=== PATIENT | female | born 2000 | race Caucasian/White ===

== ENCOUNTER → 2021-02-28 | Outpatient (CLI) | payer BC, SELFPAY ==
[2021-02-28 08:41] VITALS: BMI 32.0
[2021-03-02 03:07] LABS: Chlamydia By Nucleic Acid AMP Negative (Negative)
[2021-03-02 07:51] LABS: Gonococcus By Nucleic Acid AMP Negative (Negative)
== END | disposition home or self-care (01) ==
PROVIDERS: Referring Provider Nurse Practitioner Women's Health; Visit Provider Nurse Practitioner Women's Health
DX: Z11.3 Encounter for screening for infections with a predominantly sexual mode of transmission (principal)
CPT/HCPCS: 87491; 87591

== ENCOUNTER 2022-10-05 14:13 | Outpatient (CLI) | payer BC, SELFPAY ==
[2022-10-05 18:23] LABS: ALB/GLOB Ratio 1.4 RATIO (0.9-2.4); AST(SGOT) 18 U/L (15-37); Alanine Aminotransfer ALT/SGPT 23 U/L (13-56); Albumin, Serum 4.1 g/dL (3.2-5.0); Alkaline Phosphatase 69 U/L (45-117); Anion Gap 10 (5-15); BUN 11 mg/dL (7-18); BUN/Creat Ratio 13.6 RATIO (10-20); Calcium,Total 8.9 mg/dL (8.5-10.1); Chloride 103 mmol/L (98-107); Creatinine, Serum 0.81 mg/dL (0.55-1.02); EST Glomerular Filtration Rate 93 mL/min (>60); Est Glom Filt Rate - Afr Amer 112 mL/min (>60); Ferritin 27 ng/mL (8-252); Glucose 90 mg/dL (74-106); Magnesium 1.7 mg/dL (1.6-2.6); Potassium 3.5 mmol/L (3.5-5.1); Protein, Total 7.1 g/dL (6.4-8.2); Sodium Level 141 mmol/L (136-145)
[2022-10-05 18:27] LABS: Vitamin B12 546 pg/mL (211-911); Vitamin D,25 Hydroxy 21.9 ng/mL
== END 2022-10-05 23:59 | disposition home or self-care (01) ==
PROVIDERS: PCP Family Medicine; Referring Provider Family Medicine; Visit Provider Family Medicine
DX: R53.83 Other fatigue (principal)
CPT/HCPCS: 36415; 80053; 82306; 82607; 82728; 83735

== ENCOUNTER → 2023-10-04 | Outpatient (CLI) | payer BC, SELFPAY ==
--- OUTSIDE RECORDS SUMMARY | 2023-10-04 09:06 | XMS RPT_ITS | CCD ---
Author Name Unknown Address [address] [place] [address] [place] [id number] Organization [facility] Care Team Providers Care Automobile Parts Assembler Name Role Phone Edward Ryan Unavailable Unavailable Edward Ryan Unavailable Unavailable Ivelisse Kohli Primary Care Provider CHRIS GARCIA Attending Unavailable IVELISSE KOHLI Primary Care Unavailable CHRIS GARCIA Attending Unavailable IVELISSE KOHLI Primary Care Unavailable CHRIS GARCIA Attending Unavailable IVELISSE KOHLI Primary Care Unavailable CHRIS GARCIA Attending Unavailable IVELISSE KOHLI Primary Care Unavailable Ivelisse Kohli Primary Care Provider IVELISSE KOHLI Referring Unavailable IVELISSE KOHLI Primary Care Unavailable Ivelisse Kohli Primary Care Provider Ivelisse Kohli MD Primary Care Provider [phone] Unavailable Primary Care Provider Unavailabl e DERIK FALCON Attending Unavailable DERIK FALCON Referring Unavailable DERIK FALCON Attending Unavailable Allergies Allergy Classification Reported Allergen(s) Allergy Type Date of Onset Reaction(s) Facility (12 sources) Amoxicillin; Translations: [Unknown] Drug Allergy 05-21-2019 [facility] Medications Current Medications Medication Drug Class(es) Dates Sig (Normalized) Sig (Original) adapalene 0.003 mg/mg / benzoyl peroxide 0.025 mg/mg topical gel (4 sources) Retinoid Start: 05-21-2019 adapalene-benzoyl peroxide (Epiduo Forte) 0.3-2.5 % GlwP Apply 1 application topically daily . 45 g 1 05/21/2019 Active clindamycin 300 mg oral capsule (1 source) Lincosamide Antibacterial Start: 01-05-2020 End: 01-12-2020 take 1 capsule by mouth three times daily clindamycin 300 MG capsule Take 1 capsule by mouth 3 times daily for 7 days. 21 capsule 0 01/05/2020 01/12/2020 Active drospirenone 3 mg / ethinyl estradiol 0.03 mg oral tablet (8 sources) Progestin, Estrogen Start: 05-11-2019 End: 03-02-2020 take 1 tablet by mouth once daily drospirenone-ethiny l estradiol 3-0.03 MG tablet Indications: Encounter for surveillance of contraceptive pills Take 1 tablet by mouth daily. 3 Package 4 03/02/2020 Active Completed/Discontinued Medications Medication Drug Class(es) Dates Sig (Normalized) Sig (Original) azithromycin 250 mg oral tablet (3 sources) Macrolide Antimicrobial Start: 01-05-2020 End: 01-05-2020 azithromycin (ZITHROMAX) tablet 500 mg Problems Active Problems Problem Classification Problem Date Documented Date Episodic/Chronic Immunizations and screening for infectious disease (3 sources) Contact with or exposure to other viral diseases; Translations: [Exposure to COVID-19 virus] Episodic Malaise and fatigue (3 sources) Fatigue; Translations: [Other fatigue] Onset: 07-05-2022 Episodic Other nervous system disorders (4 sources) Skin sensation disturbance; Translations: [Other disturbances of skin sensation] Episodic Other nutritional; endocrine; and metabolic disorders (1 source) Obese class I; Translations: [Obesity, unspecified] Onset: 03-02-2020 03-02-2020 Chronic Other nutritional; endocrine; and metabolic disorders (2 sources) Unintentional weight gain; Translations: [Abnormal weight gain] Episodic Other nutritional; endocrine; and metabolic disorders (1 source) Abnormal weight gain; Translations: [Unintended weight gain] Onset: 07-05-2022 Episodic Other nutritional; endocrine; and metabolic disorders (1 source) Obese class I; Translations: [Obesity (BMI 30.0-34.9)] Onset: 03-02-2020 03-02-2020 Other screening for suspected conditions (not mental disorders or infectious disease) (1 source) Cancer cervix screening status; Translations: [Encounter for screening for malignant neoplasm of cervix] Episodic Other skin disorders (4 sources) Acne; Translations: [Other acne] Episodic Other skin disorders (1 source) Asteatosis cutis; Translations: [Xerosis cutis] Episodic Other skin disorders (1 source) Other acne; Translations: [Other acne] Onset: 07-05-2022 Episodic Residual codes; unclassified (3 sources) Reduced libido; Translations: [Decreased libido] Episodic Residual codes; unclassified (1 source) Decreased libido; Translations: [Low libido] Onset: 07-05-2022 Episodic Unclassified (2 sources) Patient encounter status; Translations: [Well woman exam with routine gynecological exam] Unclassified (1 source) Cancer cervix screening status; Translations: [Screening for cervical cancer] Viral infection (5 sources) Verruca vulgaris; Translations: [Disease caused by 2019-nCoV] Episodic Past or Other Problems Problem Classification Problem Date Documented Da te Episodic/Chronic Contraceptive and procreative management (1 source) Oral contraception; Translations: [Encounter for surveillance of contraceptive pills] Episodic Other upper respiratory infections (1 source) Streptococcal sore throat; Translations: [Strep pharyngitis] Episodic Results Test Name Value Interpretation Reference Range Facil ity Vital Signs Date Time Vital Sign Value Performing Clinician Facility 08-03-2022 08:50-0500 Body weight 88.72 kg Derik Falcon MD Work Phone: [facility] 08-03-2022 08:50-0500 Diastolic blood pressure 68 mm[Hg] Derik Falcon MD Work Phone: [facility] 08-03-2022 08:50-0500 Systolic blood pressure 100 mm[Hg] Derik Falcon MD Work Phone: [facility] 06-29-2022 09:32-0500 Body height 160.7 cm Derik Falcon MD Work Phone: [facility] 06-29-2022 09:32-0500 Body weight 87.18 kg Derik Falcon MD Work Phone: [facility] 06-29-2022 09:32-0500 Diastolic blood pressure 70 mm[Hg] Derik Falcon MD Work Phone: [facility] 06-29-2022 09:32-0500 Systolic blood pressure 106 mm[Hg] Derik Falcon MD Work Phone: [facility] 05-26-2021 10:41-0400 Body height 160 cm Yvonne DALE Work Phone: [facility] 05-26-2021 10:41-0400 Body mass index (BMI) [Ratio] 32.88 kg/m2 Yvonne Gibson APRN-ROTATING EQUIPMENT SPECIALIST Work Phone: [facility] 05-26-2021 10:41-0400 Body temperature 99.19 [degF] Yvonne Gibson WEBSPHERE ARCHITECT-ROTATING EQUIPMENT SPECIALIST Work Phone: [facility] 05-26-2021 10:41-0400 Body weight 84.19 kg Yvonne Gibson WEBSPHERE ARCHITECT-ROTATING EQUIPMENT SPECIALIST Work Phone: [facility] 05-26-2021 10:41-0400 Diastolic blood pressure 80 mm[Hg] Yvonne Gibson WEBSPHERE ARCHITECT-ROTATING EQUIPMENT SPECIALIST Work Phone: [facility] 05-26-2021 10:41-0400 Heart rate 90 /min Yvonne Gibson APRN-ROTATING EQUIPMENT SPECIALIST Work Phone: [facility] 05-26-2021 10:41-0400 Respiratory rate 18 /min Yvonne Gibson APRN-ROTATING EQUIPMENT SPECIALIST Work Phone: [facility] 05-26-2021 10:41-0400 SaO2% (BldA) [Mass fraction] 97 % Yvonne Gibson APRN-ROTATING EQUIPMENT SPECIALIST Work Phone: [facility] 05-26-2021 10:41-0400 Systolic blood pressure 126 mm[Hg] Yvonne Gibson WEBSPHERE ARCHITECT-ROTATING EQUIPMENT SPECIALIST Work Phone: [facility] 03-02-2020 10:30-0400 BMI (Body Mass Index) 30 kg/m2 [facility] 03-02-2020 10:30-0400 Body weight 74.39 kg [facility] 03-02-2020 10:30-0400 BP Diastolic 80 mm[Hg] [facility] 03-02-2020 10:30-0400 BP Systolic 126 mm[Hg] [facility] 03-02-2020 10:30-0400 Height 157.5 cm [facility] 03-02-2020 10:30-0400 Pulse (Heart Rate) 80 /min [facility] 03-02-2020 10:30-0400 Respiratory Rate 16 /min [facility] 01-05-2020 19:55-0400 BMI (Body Mass Index) 29.63 kg/m2 [facility] 01-05-2020 19:55-0400 Body weight 73.48 kg [facility] 01-05-2020 19:55-0400 Height 157.5 cm [facility] 01-05-2020 19:54-0400 Body Temperature 100.29 [degF] [facility] 01-05-2020 19:54-0400 BP Diastolic 89 mm[Hg] [facility] 01-05-2020 19:54-0400 BP Systolic 136 mm[Hg] [facility] 01-05-2020 19:54-0400 Pulse (Heart Rate) 111 /min [facility] 01-05-2020 19:54-0400 Pulse Oximetry 97 % [facility] 01-05-2020 19:54-0400 Respiratory Rate 18 /min [facility] Encounters Encounter Date Encounter Type Care Provider Facility Start: 08-03-2022 End: 08-03-2022 ambulatory DERIK FALCON Facility:[facility] Start: 08-03-2022 End: 08-03-2022 Patient encounter procedure Derik Falcon MD Work Phone: OB/Gynecology Procedures Date Procedure Procedure Detail Performing Clinician Start: 05-26-2021 SARS-COV-2 RAPID Olga Gibson WEBSPHERE ARCHITECT-ROTATING EQUIPMENT SPECIALIST Work Phone: Start: 04-21-2020 COVID-19 IVELISSE Wynne Start: 04-21-2020 COVID-19 Ivelisse Krishnan own Work Phone: Start: 03-02-[address]/NG/TRI CH, RFX TO HPV MRNA ASCUS [facility] Work Phone: Start: 01-05-2020 Iaadiadoo streptococ cus group a Betty Tolentino Work Phone: Plan of Treatment Date Care Activity Detail Author Start: 06-29-2025 PAP TESTING PAP TESTING [facility] Start: 06-29-2023 CHLAMYDIA SCREENING (18-24) CHLAMYDIA SCREENING (18-24) [facility] Start: 06-29-2023 GC (GONORRHEA) SCREENING (18-24) GC (GONORRHEA) SCREENING (18-24) [facility] Start: 07-22-2022 DEPRESSION ASSESSMENT DEPRESSION ASS ESSMENT [facility] Start: 06-29-2022 End: 08-29-2022 17-Hydroxyprogesterone [Mass/volume] in Serum or Plasma HYDROXYPROGESTERO-17 Lab Routine Low libido Other acne Unintended weight gain Expected: 06/29/2022, Expires: 08/29/2022 [facility] Work Phone: Immunizations Immunization Date Immunization Notes Care Provider Maeve carrero 04-16-2019 influenza virus vaccine, unspecified formulation Yvonne Gibson WEBSPHERE ARCHITECT-ROTATING EQUIPMENT SPECIALIST Work Phone: [facility] Payers Date Payer Category Payer Unknown [employer] BLUE CARD PPO OOS [id number] 2021-Present [phone] [facility] [id number] [place] [address] PPO [id number] 2019 Unknown [id number] 2017 Unknown ANTHEM BCBS OUT OF STATE [facility] xxxxxxxxxxxxxxx 2017-Present xxxxxxxxxxxxxxx [id number] 2014 Blue [employer] Blue Shield [id number] 1999 Unknown [id number] 03 1999 Unknown [id number] 03 1999 Unknown [id number] 03 1999 Unknown [id number] 03 1999 Unknown [id number] Social History Date Type Detail Facility Start: 05-21-2019 End: 06-29-2022 Tobacco smoking status NHIS Never smoker [facility] Start: 1999 Sex Assigned At Not on file [facility] Start: 03-02-2020 End: 06-29-2022 Tobacco use and exposure Never used [employer] Start: 03-02-2020 End: 05-26-2021 Alcohol intake Ex-drinker (finding) [facility] Exposure to SARS-CoV -2 (event) Not sure [employer] Start: 06-29-2022 End: 08-03-2022 Alcohol intake Current drinker of alcohol (finding) [facility] Start: 06-29-2022 Alcohol Comment occasional [facility] Start: 1999 Sex Assigned At Female [facility] Clinical Notes 05-26-2021 to 08-03-2022 Derik Falcon MD - 08/03/2022 8:47 AM ESTTelephone Encounter - Omayra Sagastume RN - 07/10/2022 8:49 AM ESTTelephone Encounter - Omayra Sagastume RN - 07/09/2022 4:58 PM ESTPatient Instructions Note Date & Type Note Facility 08-03-2022 Note HNO ID: [id number] Author: Derik Falcon MD Service: ? Author Type: Physician Type: Progress Notes Filed: 08/03/2022 10:32 AM Note Text: Eloina Serrano is a 22 year old female who presents for follow up after blood work. HPI: Here for follow up. Still having low motivation, fatigue, weight gain. Has no energy to workout or leave house at times. Does get enjoyment out of things once she does them. She denies a h/o anxiety or depression. Getting restful sleep at night but then still feels tired. No frequent crying spells. 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 OB History T0 L0 SAB0 IAB0 Ectopic0 Multiple0 Live Births0 Merchandising Execution Associate History LMP: 07/03/2022, Having periods Age at Menarche: Age at First : Age at Menopause: Merchandising Execution Associate History Comments: Sexual Activity: Yes; Male Contraception: Condom No past medical history on file. PAST SURGICAL HISTORY Procedure Laterality Date NONE FAMILY HISTORY Problem Relation Age of Onset other (ibs) Mother Hypertension Father No Known Problems Sister No Known Problems Sister No Known Problems Maternal Grandmother No Known Problems Maternal Grandfather No Known Problems Paternal Grandmother No Known Problems Paternal Grandfather Social History Tobacco Use Smoking status: Never Smokeless tobacco: Never Vaping Use Vaping Use: Never used Substance Use Topics Alcohol use: Yes Comment: occasional Drug use: Never No current outpatient medications on file. No current facility-administered medications for this visit. Allergies As of Date: 08/03/2022 Allergen Noted Reaction AMOXICILLIN 06/29/2022 Hives Fully Assessed 08/03/2022 REVIEW OF SYSTEMS Expanded ROS: N/A Allergies and current medication updated:Yes EXAM: BP 100/68 Wt 195 lb 9.6 oz (88.7kg) LMP 07/03/2022 GENERAL: pleasant, female in no apparent distress HEENT: Normocephalic, atraumatic, mucus membranes moist, and no lesions NECK: full range of motion DERMATOLOGY: Normal and without lesions CHEST: Normal inspiratory effort NEURO: exam grossly non-focal EXTREMITIES: normal ASSESSMENT AND PLAN: Encounter Diagnosis ICD-10-CM 1. Other fatigue R53.83 2. Low libido R68.82 3. Unintended weight gain R63.5 Reviewed normal blood work. Recommend establishing with a PCP for another opinion regarding symptoms. Discussed possible mood disorder? Reviewed option for trying SSRI vs establishing with Reyna Harmon. Recommend routine exercise, balanced diet, and getting outside every day. RTO annual exams and PRN. Derik Falcon, DO I spent 20 minutes in the visit, with more than 50% of the total [id number]-ik-[id number] time of the visit in counseling / coordination of care. [facility] 08-03-2022 History of Presen t illness Narrative Eloina Serrano is a 22 year old female who presents for follow up after blood work. HPI: Here for follow up. Still having low motivation, fatigue, weight gain. Has no energy to workout or leave house at times. Does get enjoyment out of things once she does them. She denies a h/o anxiety or depression. Getting restful sleep at night but then still feels tired. No frequent crying spells. 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 OB History T0 L0 SAB0 IAB0 Ectopic0 Multiple0 Live Births0 Merchandising Execution Associate History LMP: 07/03/2022, Having periods Age at Menarche: Age at First : Age at Menopause: Merchandising Execution Associate History Comments: Sexual Activity: Yes; Male Contraception: Condom No past medical history on file. PAST SURGICAL HISTORY Procedure Laterality Date NONE FAMILY HISTORY Problem Relation Age of Onset other (ibs) Mother Hypertension Father No Known Problems Sister No Known Problems Sister No Known Problems Maternal Grandmother No Known Problems Maternal Grandfather No Known Problems Paternal Grandmother No Known Problems Paternal Grandfather Social History Tobacco Use Smoking status: Never Smokeless tobacco: Never Vaping Use Vaping Use: Never used Substance Use Topics Alcohol use: Yes Comment: occasional Drug use: Never No current outpatient medications on file. No current facility-administered medications for this visit. Allergies As of Date: 08/03/2022 Allergen Noted Reaction AMOXICILLIN 06/29/2022 Hives Fully Assessed 08/03/2022 REVIEW OF SYSTEMS Expanded ROS: N/A Allergies and current medication updated:Yes EXAM: BP 100/68 Wt 195 lb 9.6 oz (88.7kg) LMP 07/03/2022 GENERAL: pleasant, female in no apparent distress HEENT: Normocephalic, atraumatic, mucus membranes moist, and no lesions NECK: full range of motion DERMATOLOGY: Normal and without lesions CHEST: Normal inspiratory effort NEURO: exam grossly non-focal EXTREMITIES: normal ASSESSMENT AND PLAN: Encounter Diagnosis ICD-10-CM 1. Other fatigue R53.83 2. Low libido R68.82 3. Unintended weight gain R63.5 Reviewed normal blood work. Recommend establishing with a PCP for another opinion regarding symptoms. Discussed possible mood disorder? Reviewed option for trying SSRI vs establishing with Reyna Harmon. Recommend routine exercise, balanced diet, and getting outside every day. RTO annual exams and PRN. Derik Falcon DO I spent 20 minutes in the visit, with more than 50% of the total [id number] time of the visit in counseling / coordination of care. documented in this encounter [facility] 07-10-2022 Miscellaneous Notes Formattin g of this note might be different from the original. Patient viewed [email or web address] message. Omayra Sagastume RN Left message for patient to call office for results or check [employer] message. Omayra Sagastume RN ----- Message from Derik Falcon MD sent at 07/09/2022 8:00 AM EST ----- Message sent to pt call if not viewed Eloina- Your labs are unremarkable. Since your menstrual cycles are normal, but you are experiencing a few bothersome symptoms, I would recommend establishing with a primary care provider. -Dr. Falcon documented in this encounter [facility] 06-29-2022 Note HNO ID: [id number] Author: Derik Falcon MD Service: ? Author Type: Physician Type: Progress Notes Filed: 06/29/2022 12:38 PM Note Text: Fence Builder offered: Patient declines. Eloina is a 22 year old who presents for an annual gynecologic exam with complaints, low libido . Started ocp in the past for dysmenorrhea. Was on ocp for 2 years and has been off for 1 year. Wondering if ocp could contribute to low libido. Has noticed fatigue, cold intolerance, low lbido over 1 year. Has also had worsened acne and weight gain despite exercise and changing diet. Wondering about hormone levels. Menses: cycles every 28 days and 3 days of flow. Dysmenorrhea has improved Contraception: condoms Last Pap: No record HPV: N/A History of abnormal pap: No Last mammogram: never Sexually active: Yes Male partner getting next fall! Patient concerns for STD exposure: No. OB History No obstetric history on file. Merchandising Execution Associate History LMP: 06/02/2022, Having periods Age at Menarche: Age at First : Age at Menopause: Merchandising Execution Associate History Comments: Sexual Activity: Yes; Male Contraception: Condom History reviewed. No pertinent past medical history. PAST SURGICAL HISTORY Procedure Laterality Date NONE FAMILY HISTORY Problem Relation Age of Onset other (ibs) Mother Hypertension Father No Known Problems Sister No Known Problems Sister No Known Problems Maternal Grandmother No Known Problems Maternal Grandfather No Known Problems Paternal Grandmother No Known Problems Paternal Grandfather SOCIAL HISTORY Social History Tobacco Use Smoking status: Never Smokeless tobacco: Never Vaping Use Vaping Use: Never used Substance Use Topics Alcohol use: Yes Comment: occasional Drug use: Never REVIEW OF SYSTEMS Abdomen: No abdominal pain, nausea, vomiting, diarrhea, or constipation. No bloating, early satiety, indigestion, or increased flatulence. Bladder: No dysuria, gross hematuria, urinary frequency, urinary urgency, or incontinence. Breast: No breast lumps, nipple d/c, overlying skin changes, redness or skin retraction. Allergies and current medication updated:Yes EXAM: BP 106/70 Ht 5' 3.25 (1.61m) Wt 192 lb 3.2 oz (87.2kg) LMP 06/02/2022 BMI 33.76 kg/(m2). GENERAL: pleasant, female in no apparent distress HEENT: Normocephalic, atraumatic, mucus membranes moist, and no lesions NECK: Supple, full range of motion, no adenopathy, and thyroid normal DERMATOLOGY: Normal, without lesions, non-icteric, and non-hirsute BREAST: soft, non-tender, symmetric, no dominant mass, normal nipple-areolar complex, no lymphadenopathy, and no nipple discharge CHEST: Normal inspiratory effort ABDOMEN: soft, non-tender, and no masses PELVIC: external genitalia normal, normal Bartholin's glands, urethra, Ewen's glands, no vulvar lesions, no cervical lesions, good vaginal support, physiologic discharge present, normal appearing perineal body and perianal region BIMANUAL: uterus normal size, shape and consistency, no adnexal masses, and non-tender RECTOVAGINAL: deferred. NEURO: exam grossly non-focal EXTREMITIES: normal ASSESSMENT/PLAN: 1) Health maintenance: Pap done with reflex HPV. Nutrition, exercise and routine health maintenance exams reviewed. Low libido: Discussed date nights, foreplay, erotic videos/pictures, etc. Information given on meet mc. Discussed option for seeing sex therapist and/or [facility]. Referral placed to sexual health. Discussed as she has been off ocp for 1 year now, unlikely to be contributing at this time. Fatigue, weight gain, acne, cold intolerance: Discussed limitations with checking PCOS panel especially given regular menstrual cycles. 2) Contraception: condoms. Contraceptive options reviewed and information provided. 3) STD screening: Accepted STD check for Gonorrhea and Chlamydia. 4) Follow up one year or sooner as needed Derik Falcon DO [facility] 06-29-2022 Instructions Derik Falcon MD - 06/29/2022 10:13 AM EST Get blood work on cycle day 3 of your period documented in this encounter [facility] 06-29-2022 History of Presen t illness Narrative Fence Builder offered: Patient declines. Eloina is a 22 year old who presents for an annual gynecologic exam with complaints, low libido . Started ocp in the past for dysmenorrhea. Was on ocp for 2 years and has been off for 1 year. Wondering if ocp could contribute to low libido. Has noticed fatigue, cold intolerance, low lbido over 1 year. Has also had worsened acne and weight gain despite exercise and changing diet. Wondering about hormone levels. Menses: cycles every 28 days and 3 days of flow. Dysmenorrhea has improved Contraception: condoms Last Pap: No record HPV: N/A History of abnormal pap: No Last mammogram: never Sexually active: Yes Male partner getting next fall! Patient concerns for STD exposure: No. OB History No obstetric history on file. Merchandising Execution Associate History LMP: 06/02/2022, Having periods Age at Menarche: Age at First : Age at Menopause: Merchandising Execution Associate History Comments: Sexual Activity: Yes; Male Contraception: Condom History reviewed. No pertinent past medical history. PAST SURGICAL HISTORY Procedure Laterality Date NONE FAMILY HISTORY Problem Relation Age of Onset other (ibs) Mother Hypertension Father No Known Problems Sister No Known Problems Sister No Known Problems Maternal Grandmother No Known Problems Maternal Grandfather No Known Problems Paternal Grandmother No Known Problems Paternal Grandfather SOCIAL HISTORY Social History Tobacco Use Smoking status: Never Smokeless tobacco: Never Vaping Use Vaping Use: Never used Substance Use Topics Alcohol use: Yes Comment: occasional Drug use: Never REVIEW OF SYSTEMS Abdomen: No abdominal pain, nausea, vomiting, diarrhea, or constipation. No bloating, early satiety, indigestion, or increased flatulence. Bladder: No dysuria, gross hematuria, urinary frequency, urinary urgency, or incontinence. Breast: No breast lumps, nipple d/c, overlying skin changes, redness or skin retraction. Allergies and current medication updated:Yes EXAM: BP 106/70 Ht 5' 3.25 (1.61m) Wt 192 lb 3.2 oz (87.2kg) LMP 06/02/2022 BMI 33.76 kg/(m^2). GENERAL: pleasant, female in no apparent distress HEENT: Normocephalic, atraumatic, mucus membranes moist, and no lesions NECK: Supple, full range of motion, no adenopathy, and thyroid normal DERMATOLOGY: Normal, without lesions, non-icteric, and non-hirsute BREAST: soft, non-tender, symmetric, no dominant mass, normal nipple-areolar complex, no lymphadenopathy, and no nipple discharge CHEST: Normal inspiratory effort ABDOMEN: soft, non-tender, and no masses PELVIC: external genitalia normal, normal Bartholin's glands, urethra, Ewen's glands, no vulvar lesions, no cervical lesions, good vaginal support, physiologic discharge present, normal appearing perineal body and perianal region BIMANUAL: uterus normal size, shape and consistency, no adnexal masses, and non-tender RECTOVAGINAL: deferred. NEURO: exam grossly non-focal EXTREMITIES: normal ASSESSMENT/PLAN: 1) Health maintenance: Pap done with reflex HPV. Nutrition, exercise and routine health maintenance exams reviewed. Low libido: Discussed date nights, foreplay, erotic videos/pictures, etc. Information given on meet mc. Discussed option for seeing sex therapist and/or [facility]. Referral placed to sexual health. Discussed as she has been off ocp for 1 year now, unlikely to be contributing at this time. Fatigue, weight gain, acne, cold intolerance: Discussed limitations with checking PCOS panel especially given regular menstrual cycles. 2) Contraception: condoms. Contraceptive options reviewed and information provided. 3) STD screening: Accepted STD check for Gonorrhea and Chlamydia. 4) Follow up one year or sooner as needed Derik Falcon DO documented in this encounter [facility] 05-26-2021 History of Presen t illness Narrative HPI Eloina Serrano female 2000 presents to the [facility] with Chief Complaint Patient presents with Cough runny nose,starting to loose taste, exposed saturday,symptoms started saturday Patient presents with concerns for COVID19. Her symptoms started on Saturday. She was exposed and her sister on Saturday. Patient complains of rhinorrhea, cough, change in taste. Denies fever, chills, NVD, headache,, chest pain, shortness of breath. No self treatments. History Allergies Allergen Reactions Amoxicillin Current Outpatient Medications Medication Sig drospirenone-ethinyl estradiol 3-0.03 MG tablet Take 1 tablet by mouth daily. (Patient not taking: Reported on 05/26/2021) tiZANidine 4 MG tablet TAKE 1 TABLET BY MOUTH AT BEDTIME NEEDED spasms (Patient not taking: Reported on 05/26/2021) Family History Problem Relation Age of Onset Migraines Mother Thyroid Disease Mother Hypertension Father Lipid Disorder Father Alcoholism Father Skin Cancer Sister Heart Failure Maternal Grandmother Myocardial Infarction Maternal Grandmother Migraines Maternal Grandmother Skin Cancer Maternal Grandfather Alcoholism Maternal Grandfather Kidney Disease Paternal Grandfather Past Medical History: Diagnosis Date Headache No past surgical history on file. Social History Socioeconomic History Marital status: Single Spouse name: Not on file Number of children: Not on file Years of education: Not on file Highest education level: Not on file Occupational History Not on file Tobacco Use Smoking status: Never Smoker Smokeless tobacco: Never Used Vaping Use Vaping Use: Never used Substance and Sexual Activity Alcohol use: Not Currently Drug use: Never Sexual activity: Yes Partners: Male control/protection: Condom Other Topics Concern Service Not Asked Blood Transfusions Not Asked Caffeine Concern Not Asked Occupational Exposure Not Asked Hobby Hazards Not Asked Sleep Concern Not Asked Stress Concern Not Asked Weight Concern Not Asked Special Diet Not Asked Back Care Not Asked Exercise Not Asked Bike Helmet Not Asked Seat Belt Not Asked Domestic Violence No Social History Narrative Not on file Social Determinants of Health Financial Resource Strain: Difficulty of Paying Living Expenses: Food Insecurity: Worried About Running Out of Food in the Last Year: Ran Out of Food in the Last Year: Transportation Needs: Lack of Transportation (Medical): Lack of Transportation (Non-Medical): Physical Activity: Days of Exercise per Week: Minutes of Exercise per Session: Stress: Feeling of Stress : Social Connections: Frequency of Communication with Friends and Family: Frequency of Social Gatherings with Friends and Family: Attends [employer] Services: Active Member of Clubs or Organizations: Attends Club or Organization Meetings: Marital Status: Intimate Partner Violence: Fear of Current or Ex-Partner: Emotionally Abused: Physically Abused: Sexually Abused: ROS Review of Systems 8 systems reviewed with patient, negative unless specifically mentioned in history of present illness PHYSICAL EXAM Visit Vitals BP 126/80 (BP Location: Left arm, BP Position: Sitting) Pulse 90 Temp 99.2 F (37.3 C) (Temporal) Resp 18 Ht 1.6 m (5' 3 ) Wt 84.2 kg (185 lb 9.6 oz) SpO2 97% BMI 32.88 kg/m Physical Exam Vitals and nursing note reviewed. Constitutional: General: She is not in acute distress. Appearance: Normal appearance. She is well-developed. She is not ill-appearing or diaphoretic. HENT: Head: Normocephalic. Cardiovascular: Rate and Rhythm: Regular rhythm. Tachycardia present. Heart sounds: Normal heart sounds. Pulmonary: Effort: Pulmonary effort is normal. No respiratory distress. Breath sounds: Normal breath sounds. Abdominal: General: There is no distension. Musculoskeletal: Cervical back: Neck supple. Skin: General: Skin is warm and dry. Capillary Refill: Capillary refill takes less than 2 seconds. Neurological: General: No focal deficit present. Mental Status: She is alert and oriented to person, place, and time. Psychiatric: Mood and Affect: Mood normal. Behavior: Behavior normal. RESULTS Recent Results (from the past 1 hour(s)) SARS-COV-2 RAPID Collection Time: 05/26/21 10:38 AM Specimen: Fluid/Swab Result Value Ref Range SARS COV 2 RNA, QL REAL TIME RT PCR DETECTED (A) NOT DETECTED NARRATIVE -1 This test was performed using isothermal LISA and has been approved as Emergency Use Authorization (EUA) for the qualitative detection [id number] nucleic acid. PERFORMED BY [facility] ASSESSMENT/PLAN 1. COVID-19 virus infection 2. Exposure to COVID-19 virus Orders Placed This Encounter SARS-COV-2 RAPID Rapid COVID19 positive. Patient will quarantine per CDC guidelines. Reviewed symptomatic OTC treatments. If symptoms worsen patient was advised to follow up in our office, primary care provider or the Emergency Dept. Benefits, Risks, Contraindications, and Complications of recommended treatments were explained. The patient understands and agrees to proceed with plan. SUYAPA Chavarria 05/26/2021 documented in this encounter [facility] 05-26-2021 Instructions SUYAPA Chavarria - 05/26/2021 10:35 AM EDT Images from the original note were not included. Learning About Coronavirus (COVID-19) What is coronavirus (COVID-19)? COVID-19 is a disease caused by a type of coronavirus. This illness was first found in June 2019. It has since spread worldwide. Coronaviruses are a large group of viruses. They cause the common cold. They also cause more serious illnesses like [place] respiratory syndrome (MERS) and severe acute respiratory syndrome (SARS). COVID-19 is caused by a novel coronavirus. That means it's a new type that has not been seen in people before. What are the symptoms? COVID-19 symptoms may include: Fever. Cough. Trouble breathing. Chills or repeated shaking with chills. Muscle and body aches. Headache. Sore throat. New loss of taste or smell. Vomiting. Diarrhea. In severe cases, COVID-19 can cause pneumonia and make it hard to breathe without help from a machine. It can cause . How is it diagnosed? COVID-19 is diagnosed with a viral test. This may also be called a PCR test or antigen test. It looks for evidence of the virus in your breathing passages or lungs (respiratory system). The test is most often done on a sample from the nose, throat, or lungs. It's sometimes done on a sample of saliva. One way a sample is collected is by putting a long swab into the back of your nose. How is it treated? Mild cases of COVID-19 can be treated at home. Serious cases need treatment in the hospital. Treatment may include medicines to reduce symptoms, plus breathing support such as oxygen therapy or a ventilator. Some people may be placed on their belly to help their oxygen levels. Treatments that may help people who have COVID-19 include: Antiviral medicines. These medicines treat viral infections. Remdesivir is an example. Immune-based therapy. These medicines help the immune system fight COVID-19. Examples include monoclonal antibodies. Blood thinners. These medicines help prevent blood clots. People with severe illness are at risk for blood clots. How can you protect yourself and others? The best way to protect yourself from getting sick is to: Get vaccinated. Avoid sick people. If you are not fully vaccinated: ? Wear a mask if you have to go to public areas. ? Avoid crowds and try to stay at least 6 feet away from other people. Cover your mouth with a tissue when you cough or sneeze. Wash your hands often, especially after you cough or sneeze. Use soap and water, and scrub for at least 20 seconds. If soap and water aren't available, use an alcohol-based hand dairy technologist. Avoid touching your mouth, nose, and eyes. To help avoid spreading the virus to others: Get vaccinated. Cover your mouth with a tissue when you cough or sneeze. Wash your hands often, especially after you cough or sneeze. Use soap and water, and scrub for at least 20 seconds. If soap and water aren't available, use an alcohol-based hand dairy technologist. If you have been exposed to the virus and are not fully vaccinated: ? Stay home. Don't go to school, work, or public areas. And don't use public transportation, ride-shares, or taxis unless you have no choice. ? Wear a mask if you have to go to public areas, like the pharmacy. If you're sick: ? Leave your home only if you need to get medical care. But call the doctor's office first so they know you're coming. And wear a mask. ? Wear a mask whenever you're around other people. ? Limit contact with pets and people in your home. If possible, stay in a separate bedroom and use a separate bathroom. ? Clean and disinfect your home every day. Use household chief unit forester and disinfectant wipes or sprays. Take special care to clean things that you touch with your hands. How can you self-isolate when you have COVID-19? If you have COVID-19, there are things you can do to help avoid spreading the virus to others. Limit contact with people in your home. If possible, stay in a separate bedroom and use a separate bathroom. Wear a mask when you are around other people. If you have to leave home, avoid crowds and try to stay at least 6 feet away from other people. Avoid contact with pets and other animals. Cover your mouth and nose with a tissue when you cough or sneeze. Then throw it in the trash right away. Wash your hands often, especially after you cough or sneeze. Use soap and water, and scrub for at least 20 seconds. If soap and water aren't available, use an alcohol-based hand dairy technologist. Don't share personal household items. These include bedding, towels, cups and glasses, and eating utensils. Wash laundry in the warmest water allowed for the fabric type, and dry it completely. It's okay to wash other people's laundry with yours. Clean and disinfect your home. Use household chief unit forester and disinfectant wipes or sprays. When should you call for help? Call 911 anytime you think you may need emergency care. For example, call if you have life-threatening symptoms, such as: You have severe trouble breathing. (You can't talk at all.) You have constant chest pain or pressure. You are severely dizzy or lightheaded. You are confused or can't think clearly. You have pale, vasquez, or blue-colored skin or lips. You pass out (lose consciousness) or are very hard to wake up. Call your doctor now or seek immediate medical care if: You have moderate trouble breathing. (You can't speak a full sentence.) You are coughing up blood (more than about 1 teaspoon). You have signs of low blood pressure. These include feeling lightheaded; being too weak to stand; and having cold, pale, clammy skin. Watch closely for changes in your health, and be sure to contact your doctor if: Your symptoms get worse. You are not getting better as expected. You have new or worse symptoms of anxiety, depression, nightmares, or flashbacks. Call before you go to the doctor's office. Follow their instructions. And wear a mask. Current as of: January 19, 2021 Content Version: 13.0 [employer]. Care instructions adapted under license by your healthcare professional. If you have questions about a medical condition or this instruction, always ask your healthcare professional. [employer] disclaims any warranty or liability for your use of this information. documented in this encounter [facility] Encounter for gynecological examination (general) (routine) without abnormal findings- Primary Screening for cervical cancer Screening for malignant neoplasm of the cervix Encounter for screening for human papillomavirus (HPV) Special screening examination for human papillomavirus (HPV) Screen for STD (sexually transmitted disease) Screening examination for venereal disease Low libido Decreased libido Other acne Unintended weight gain Abnormal weight gain Fatigue, unspecified type [facility] Other fatigue- Primary Low libido Decreased libido Unintended weight gain Abnormal weight gain documented in this encounter [facility] Summary Purpose Family History No Family History Records FoundNo Family History Records FoundNo Family History Records FoundNo Family History Records FoundNo Family History Records FoundNo Family History Records FoundNo Family History Records Found Advance Directives No Advanced Directives Records FoundDocuments on File Type Date Recorded Patient Concessionist Expl anation Advance Directives and Living Will History of Present Illness * Chris Garcia Jr., DO - 05/21/2019 11:16 AM EDT Eloina Serrano is a 19 y.o. female who presents for Chief Complaint Skin Lesion Dictation on: 05/21/2019 11:18 AM by: CHRIS GARCIA [[id number]] Past Medical History: Diagnosis Date Acne No past medical history pertinent negatives. Family History Cancer-related family history is not on file. Review of Systems Constitutional: Malaise: No Skin: Other new or changing growths on skin: No Physical Examination Physical Exam The following areas were within normal limits except as noted otherwise in this note: Exposed: Oriented x 3/ alert; development/nourishment; mood/affect; scalp/hair; face; eyes/eyelids;lips; neck; digits/nails. Pertinent positive PE findings can be found below Assessment and Plan Chris Garcia DO 05/21/2019 documented in this encounter* Chris Garcia Jr., DO - 06/29/2019 5:05 PM EST Eloina Serrano is a 19 y.o. female who presents for Chief Complaint Skin Lesion The patient is here today for the evaluation of a bump on her left middle finger that has raised. She had laser treatment to this by a previous doctor which helped at the beginning, but it did grow back within a couple days. She is here today for different options for treatment. She is also here for evaluation of her acne. She has been dealing with acne for the last year or two. She states she was put on control, Cassie, which helped slightly, but she is still getting breakouts. She is innursing school and is under a lot of stress recently. PHYSICAL EXAM She has a verrucal papule of her left middle finger and also involving her right leg. She also has an inflammatory papules of her forehead with open comedones of her forehead, nose, and chin. ASSESSMENT AND PLAN 1. Verruca vulgaris of the left middle finger. We have injected this verruca today with Marie antigen. 0.3 mL was injected in her lesion today. Patient tolerated the procedure well. We have also used cryosurgery to the area with cryo method x2 freeze-thaw cycles. We discussed home care instructions and side effects with the patient. We have given the patient a prescription for wart peel cream to apply to the affected area twice a day. We will see the patient back in 4 weeks' time. Xerosis - new problem. Etiology explained. Treatment options with emphasis on risk/benefits discussed. Recommend Cerave moistuizer and mild soap. samples and coupons given today. Pertinent PE: slight erythema with desqumating scale hands Past Medical History: Diagnosis Date Acne Past Medical History Pertinent Negatives: Diagnosis Date Noted Basal cell carcinoma 06/17/2019 Melanoma (HCC) 06/17/2019 Squamous cell skin cancer 06/17/2019 Family History Cancer-related family history is not on file. Review of Systems Constitutional: Malaise: No Skin: Other new or changing growths on skin: No Physical Examination Physical Exam The following areas were within normal limits except as noted otherwise in this note: Exposed: Oriented x 3/ alert; development/nourishment; mood/affect; scalp/hair; face; eyes/eyelids;lips; neck; digits/nails. Pertinent positive PE findings can be found below Assessment and Plan Chris Garcia DO 06/29/2019 documented in this encounter* Chris Garcia Jr., DO - 07/23/2019 9:03 AM EST Eloina Serrano is a 19 y.o. female who presents for Chief Complaint Skin Lesion Dictation on: 07/23/2019 9:03 AM by: CHRIS GARCIA [[id number]] Past Medical History: Diagnosis Date Acne Past Medical History Pertinent Negatives: Diagnosis Date Noted Basal cell carcinoma 06/17/2019 Melanoma (HCC) 06/17/2019 Squamous cell skin cancer 06/17/2019 Family History Cancer-related family history is not on file. Review of Systems Constitutional: Malaise: No Skin: Other new or changing growths on skin: No Physical Examination Physical Exam The following areas were within normal limits except as noted otherwise in this note: Exposed: Oriented x 3/ alert; development/nourishment; mood/affect; scalp/hair; face; eyes/eyelids;lips; neck; digits/nails. Pertinent positive PE findings can be found below Assessment and Plan Chris Garcia DO 07/23/2019 documented in this encounter* Chris Garcia Jr., DO - 06/17/2019 10:18 AM EST Eloina Serrano is a 19 y.o. female who presents for Chief Complaint Acne; Verrucous Vulgaris The patient is here today for the evaluation of a bump on her left middle finger that has raised. She had laser treatment to this by a previous doctor which helped at the beginning, but it did grow back within a couple days. She is here today for different options for treatment. She is also here for evaluation of her acne. She has been dealing with acne for the last year or two. She states she was put on control, Cassie, which helped slightly, but she is still getting breakouts. She is innursing school and is under a lot of stress recently. PHYSICAL EXAM She has a verrucal papule of her left middle finger and also involving her right leg. She also has an inflammatory papules of her forehead with open comedones of her forehead, nose, and chin. ASSESSMENT AND PLAN 1. Verruca vulgaris of the left middle finger. We have injected this verruca today with Marie antigen. 0.3 mL was injected in her lesion today. Patient tolerated the procedure well. We have also used cryosurgery to the area with cryo method x2 freeze-thaw cycles. We discussed home care instructions and side effects with the patient. We have given the patient a prescription for wart peel cream to apply to the affected area twice a day. We will see the patient back in 4 weeks' time. 2. Acne vulgaris of the face, new. I have given the patient a prescription for Epiduo Forte to be used at nighttime, and we will see the patient back in 2 months' time for reevaluation. Past Medical History: Diagnosis Date Acne Past Medical History Pertinent Negatives: Diagnosis Date Noted Basal cell carcinoma 06/17/2019 Melanoma (HCC) 06/17/2019 Squamous cell skin cancer 06/17/2019 Family History Cancer-related family history is not on file. Review of Systems Constitutional: Malaise: No Skin: Other new or changing growths on skin: No Physical Examination Physical Exam The following areas were within normal limits except as noted otherwise in this note: Exposed: Oriented x 3/ alert; development/nourishment; mood/affect; scalp/hair; face; eyes/eyelids;lips; neck; digits/nails. Pertinent positive PE findings can be found below Assessment and Plan Chris [place], DO 06/17/2019 documented in this encounter* Michel Hines MD - 03/02/2020 10:30 AM EDT HPI Eloina Serrano is a 19 y.o. female who presents today for concerns including Annual Merchandising Execution Associate Exam and contraception management (Patient here for annual. This will be first pap. Denies any issues. Would like a refill on birthcontrol.) Has been on COCs and will like to continue on them. Patient complained of decreased libido since she started taking control pils. No urinary symptoms nor pelvic pain reported. LMP: Patient's last menstrual period was 02/10/2020 (exact date). No results found for: PAPSMEAR OB HISTORY: OB History Para Term AB Living 0 0 0 0 0 0 SAB TAB Ectopic Molar Multiple Live Births 0 0 0 0 0 0 HISTORY/ALLERGIES Allergies Allergen Reactions Amoxicillin Past Medical History: Diagnosis Date Headache No past surgical history on file. Social History Tobacco Use Smoking status: Never Smoker Smokeless tobacco: Never Used Substance Use Topics Alcohol use: Not Currently Drug use: Never Family History Problem Relation Age of Onset Migraines Mother Thyroid Disease Mother Hypertension Father Lipid Disorder Father Alcoholism Father Skin Cancer Sister Heart Failure Maternal Grandmother Myocardial Infarction Maternal Grandmother Migraines Maternal Grandmother Skin Cancer Maternal Grandfather Alcoholism Maternal Grandfather Kidney Disease Paternal Grandfather Current Outpatient Medications: drospirenone-ethinyl estradiol 3-0.03 MG tablet, Take 1 tablet by mouth daily., Disp: 3 Package, Rfl: 4 tiZANidine 4 MG tablet, TAKE 1 TABLET BY MOUTH AT BEDTIME NEEDED spasms, Disp: , Rfl: ROS Review of Systems Constitutional: Negative. HENT: Negative. Eyes: Negative. Respiratory: Negative. Cardiovascular: Negative. Gastrointestinal: Negative. Genitourinary: Negative. Musculoskeletal: Negative. Skin: Negative. Neurological: Negative. Psychiatric/Behavioral: Negative. All other systems reviewed and are negative. EXAM BP 126/80 Pulse 80 Resp 16 Ht 5' 2 (1.575 m) Wt 164 lb (74.4 kg) BMI 30.00 kg/m Smoking Status Never Smoker Physical Exam Vitals signs and nursing note reviewed. Exam conducted with a technology coach present. Constitutional: General: She is not in acute distress. Appearance: Normal appearance. She is obese. She is not ill-appearing. HENT: Head: Normocephalic and atraumatic. Neck: Musculoskeletal: Normal range of motion. Cardiovascular: Rate and Rhythm: Normal rate and regular rhythm. Heart sounds: Normal heart sounds. Pulmonary: Effort: Pulmonary effort is normal. Breath sounds: Normal breath sounds. Chest: Chest wall: No mass. Breasts: Breasts are symmetrical. Right: Normal. Left: Normal. Abdominal: General: There is no distension. Palpations: Abdomen is soft. There is no mass. Tenderness: There is no abdominal tenderness. Genitourinary: General: Normal vulva. Exam position: Lithotomy position. Pubic Area: No rash. Labia: Right: No rash, tenderness or lesion. Left: No rash, tenderness or lesion. Vagina: Normal. Cervix: Normal. Uterus: Normal. Musculoskeletal: Normal range of motion. Lymphadenopathy: Upper Body: Right upper body: No axillary adenopathy. Left upper body: No axillary adenopathy. Skin: General: Skin is warm and dry. Neurological: General: No focal deficit present. Mental Status: She is alert and oriented to person, place, and time. Psychiatric: Behavior: Behavior normal. Diagnosis/Plan: Eloina was seen today for annual exam. Diagnoses and all orders for this visit: Well woman exam with routine gynecological exam Encouraged annual Merchandising Execution Associate Exams Screening for cervical cancer - [employer]KKI CYT[employer]Y-PRODUCTION TEAM ADVISOR, LIQUID BASED We talked about the continuum of care in the screening of cervical cancer as per ASCCP guidelines. I shared with patient that the results will be back within a week and I will review them and releasethem to her on Mychart. If there are any abnormal results, she will hear from us and we will followthe algorithms set forth by the ASCCP guidelines. Encounter for surveillance of contraceptive pills - drospirenone-ethinyl estradiol 3-0.03 MG tablet; Take 1 tablet by mouth daily. OCP Counseling Discussed risks and benefits of OCP. Risks include but are not limited to DVT, stroke, PE, SC, hypertension, and possibly increased risk of breast cancer. Possible side effects include weight gain and headaches. Pill should be taken at the same time every day. Use condoms for the first 2-4 weeks after starting the OCPs. Pills do not protect from STI and condoms should still be used to decrease this risk. Reviewed ACHES warning signs. Screening for STDs (sexually transmitted diseases) Discussed safe sex practices. Has been with the same partner for 4 years. Will treat as needed Decreased libido Talked about libido as I shared with patient that sometimes in can be all in the mind. I encouragedpatient to self discover and we talked about a few things not limited to self discovery even with the use of sex toys. I shared with her that we can consider sex therapy and also pelvic floor therapy to see if that helps her in 3-6 months. I shared that we can also stop COCs and see if there is resolution; patient wants to stay on her current form of control. Answered all of patient's questions and she verbalized understanding Shared decision making; patient in agreement Michel Hines MD 03/02/2020 documented in this encounter Assessments Diagnosis Viral warts, unspecified type- Primary Other disturbances of skin sensation Acne vulgaris Other acne Diagnosis Viral warts, unspecified type Other disturbances of skin sensation Xerosis cutis Other specified disease of sebaceous glands Diagnosis Viral warts, unspecified type Other disturbances of skin sensation Acne vulgaris Other acne Diagnosis Viral warts, unspecified type Other disturbances of skin sensation Acne vulgaris Other acne Diagnosis Well woman exam with routine gynecological exam- Primary Routine gynecological examination Screening for cervical cancer Screening for malignant neoplasm of the cervix Encounter for surveillance of contraceptive pills Surveillance of previously prescribed contraceptive pill Screening for STDs (sexually transmitted diseases) Screening examination for venereal disease Decreased libido Diagnosis Strep pharyngitis Streptococcal sore throat Discharge Instructions * Attachments The following attachments cannot be sent through Care Everywhere. * Strep Throat (Chinese) * Rapid Strep Test (Chinese) documented in this encounter Reason for Referral Specialty Diagnoses / Procedures Referred By Luis Felipe t Referred To Contact Diagnoses Low libido Procedures CONSULT TO SEXUAL HEALTH Derik Falcon MD [address] [place] [address] [place] [address] [place] [address] Referral ID Status Reason Start Date Expiration Date Visits Requested Visits Authorized [id number] Ref Not Required PCP Requested Referral 06/29/2022 09/27/2022 1 1 Additional Source Comments INFORMATION SOURCE (unrecogn ized section and content) DATE CREATED AUTHOR AUTHOR'S ORGANIZ ATION 07/27/2019 [facility] DATE CREATED AUTHOR AUTHOR'S ORGANIZ ATION 01/06/2020 [facility] DATE CREATED AUTHOR AUTHOR'S ORGANIZ ATION 04/22/2020 [facility] DATE CREATED AUTHOR AUTHOR'S ORGANIZ ATION 05/27/2021 [facility] DATE CREATED AUTHOR AUTHOR'S ORGANIZ ATION 08/03/2022 [facility] DATE CREATED AUTHOR AUTHOR'S ORGANIZ ATION 10/31/2022 [facility] Reason for Visit (unrecogniz ed section and content) Reason Comments Acne Verrucous Vulgaris Reason Comments Annual Exam Patient here for elsy ual. This will be first pap. Denies any issues. Would like a refill on birthcontrol. Reason Comments Sore Throat Patient complaining of sore throat x 1 week. States she was tested for strept throat a urgent care twice this week, but both tests were negative. Patient was prescribed Zithromax yesterday, only took 1 does yesterday, none today. Current temp 100.3, did not take OTC medication today. Denies SOB, respirations even and unlabored, no signs of distress observed. Fever Reason Comments Cough runny nose,starting to loose taste, exposed saturday,symptoms started saturday Reason Comments Well Woman Reason Comments Results Reason Comments Follow Up Review lab results Care Teams (unrecognized sec tion and content) Source Comments (unrecognize d section and content) In the event this informatio n is protected by the Federal Confidentiality of Alcohol and Drug Abuse Patient Records regulations: The Federal rules restrict any use of the information to criminally investigate or prosecute any alcohol or drug abuse patient.[facility] the event this information is protected by the Federal Confidentiality of Alcohol and Drug Abuse Patient Records regulations: The Federal rules restrict any use of the information to criminally investigate or prosecute any alcohol or drug abuse patient.[facility] the event this information is protected by the Federal Confidentiality of Alcohol and Drug Abuse Patient Records regulations: The Federal rules restrict any use of the information to criminally investigate or prosecute any alcohol or drug abuse patient.[facility] FOR RECORDS PERTAINING TO PATIENTS WHO ARE OR HAVE BEEN ENROLLED IN A CHEMICAL DEPENDENCY/SUBSTANCEABUSE PROGRAM, SOME INFORMATION MAY BE OMITTED. This clinical summary was aggregated from multiple sources. Caution should be exercised in using it in the provision of clinical care. This summary normalizes information from multiple sources, and as a consequence, information in this document may materially change the coding, format and clinical context of patient data. In addition, data may be omitted in some cases. CLINICAL DECISIONS SHOULD BE BASED ON THE PRIMARY CLINICAL RECORDS. [facility]. provides no warranty or guarantee of the accuracy or completeness of information in this document.
[2023-10-04 11:08] LABS: Internal QC Validated? YES +Cl - CLEAR BKGD; Pregnancy, Serum, hCG Quali. NEGATIVE Negative
[2023-10-04 11:19] LABS: Vitamin D,25 Hydroxy 23.7 ng/mL
[2023-10-04 11:43] LABS: ALB/GLOB Ratio 1.1 RATIO (0.9-2.4); AST(SGOT) 16 U/L (15-37); Alanine Aminotransfer ALT/SGPT 20 U/L (13-56); Alkaline Phosphatase 65 U/L (45-117); Anion Gap 4 (5-15); BUN 10 mg/dL (7-18); BUN/Creat Ratio 12.4 RATIO (10-20); Calcium,Total 9.1 mg/dL (8.5-10.1); Chloride 106 mmol/L (98-107); Creatinine, Serum 0.81 mg/dL (0.55-1.02); EST Glomerular Filtration Rate 92 mL/min (>60); Est Glom Filt Rate - Afr Amer 112 mL/min (>60); Ferritin 20 ng/mL (8-252); Globulin 3.6 g/dL (2.2-4.2); Glucose 98 mg/dL (74-106); Iron 96 ug/dL (50-170); Iron Binding Capacity,Total 359 ug/dL (250-450); Magnesium 2.3 mg/dL (1.6-2.6); PERCENT IRON SATURATION 26.7 % (15.0-55.0); Phosphorus 2.9 mg/dL (2.5-4.9); Potassium 4.4 mmol/L (3.5-5.1); Protein, Total 7.6 g/dL (6.4-8.2); Sodium Level 138 mmol/L (136-145); T4 Free Direct 0.96 ng/dL (0.76-1.46); Thyroid Stim Hormone (TSH) 2.17 uIU/mL (0.358-3.74)
== END | disposition home or self-care (01) ==
LOC: MTLAB 08:45
PROVIDERS: PCP Family Medicine; Referring Provider Family Medicine; Visit Provider Family Medicine
DX: R53.83 Other fatigue (principal); E55.9 Vitamin D deficiency, unspecified; R68.82 Decreased libido
CPT/HCPCS: 36415; 80053; 82306; 82728; 83540; 83550; 83735; 84100; 84439; 84443; 84703

== ENCOUNTER → 2024-01-27 | Outpatient (CLI) | payer BC, SELFPAY ==
[2024-01-27 12:30] LABS: Erythrocyte Sedimentation Rate 1 mm/hr (0-30)
[2024-01-27 12:48] LABS: CRP 3.33 mg/L (0.0-3.0); Estradiol 148.4 pg/mL; Follicle Stimulating Hormone 2.4 mIU/mL; Prolactin 32.8 ng/mL
[2024-01-28 04:07] LABS: Sex Hormone-binding Globulin 72.8 nmol/L (24.6-122.0)
[2024-01-28 13:08] LABS: ANTINUCLEAR ANTIBODIES DIRECT Negative (Negative); PROGESTERONE 12.3 ng/mL (.)
== END | disposition home or self-care (01) ==
LOC: BFHLAB 08:05
PROVIDERS: PCP Nurse Practitioner Family; Referring Provider Nurse Practitioner Family; Visit Provider Nurse Practitioner Family
DX: R68.82 Decreased libido (principal); R53.83 Other fatigue; Z13.29 Encounter for screening for other suspected endocrine disorder
CPT/HCPCS: 36415; 82533; 82670; 83001; 83002; 84144; 84146; 84270; 84403; 85652; 86038; 86140; 86225; 86235

== ENCOUNTER → 2024-02-07 | Outpatient (CLI) | payer BC, SELFPAY ==
[2024-02-07 12:40] LABS: T4 Free Direct 1.01 ng/dL (0.76-1.46); T4 Total, Thyroxin 9.6 ug/dL (4.8-13.9); Thyroid Stim Hormone (TSH) 1.16 uIU/mL (0.358-3.74)
[2024-02-10 16:09] LABS: Anti-Thyroglobulin AB < 1.0 IU/mL (0.0-0.9); Thyroid Peroxidase AB 82 IU/mL (0-34); Thyroxin Bind Glob (TBG) 17 ug/mL (13-39)
== END | disposition home or self-care (01) ==
LOC: BFHLAB 09:25
PROVIDERS: PCP Nurse Practitioner Family; Referring Provider Nurse Practitioner Family; Visit Provider Nurse Practitioner Family
DX: R53.83 Other fatigue (principal); Z83.49 Family history of other endocrine, nutritional and metabolic diseases
CPT/HCPCS: 36415; 84432; 84436; 84439; 84442; 84443; 84481; 86376; 86800

== ENCOUNTER → 2024-08-14 | Outpatient (CLI) | payer BC, SELFPAY ==
[2024-08-14 17:22] LABS: Vitamin D,25 Hydroxy 34.6 ng/mL
[2024-08-14 17:28] LABS: T4 Free Direct 1.08 ng/dL (0.76-1.46)
== END | disposition home or self-care (01) ==
LOC: BFHLAB 13:50
PROVIDERS: PCP Nurse Practitioner Family; Visit Provider Nurse Practitioner Family
DX: R76.8 Other specified abnormal immunological findings in serum (principal); E55.9 Vitamin D deficiency, unspecified
CPT/HCPCS: 36415; 82306; 84439; 84443

== ENCOUNTER → 2024-08-21 | Outpatient (CLI) | payer BC, SELFPAY ==
[2024-08-27 08:24] LABS: HPV Reflexed? NOT INDICATED
== END | disposition home or self-care (01) ==
LOC: LABSPEC 15:39
PROVIDERS: Referring Provider Obstetrics & Gynecology; Visit Provider Obstetrics & Gynecology
DX: Z12.4 Encounter for screening for malignant neoplasm of cervix (principal)
CPT/HCPCS: 88175; G0145

== ENCOUNTER → 2024-08-28 | Outpatient (CLI) | payer BC, SELFPAY ==
--- NOTE | 2024-08-28 14:21 | US_ITS ---
PROCEDURE: BREAST LIMITED UNILATERAL REASON FOR EXAM: History of right breast lump. COMPARISON: Comparison is made with prior mammogram dated August 28, 2024. TECHNIQUE: Targeted ultrasound of the upper aspect of the right breast was obtained. FINDINGS: RIGHT: Ultrasound targeted to the upper half at the right breast. The breast tissue appears sonographically normal. No cyst, solid mass, or suspicious shadowing. Incidental note is made of mildly dilated subareolar ducts. US/Breast Limited Unilateral IMPRESSION: No mass lesion is seen. Mild dilatation of retroareolar ducts. BI-RADS 2: BENIGN. RECOMMEND ANNUAL MAMMOGRAPHIC SCREENING. Reading Location: [id number]
--- NOTE | 2024-08-28 14:21 | BI_ITS ---
PROCEDURE: DIAG MAMM W/CAD, BILAT REASON FOR EXAM: F, Age 24 y/o, right breast lump. TECHNIQUE: Bilateral screening digital breast tomosynthesis with 2D and 3D images. Computer aided detection. COMPARISON: Baseline study. FINDINGS: The breasts are extremely dense which lowers the sensitivity of mammography. No suspicious masses, areas of developing architectural distortion, or suspicious calcifications.. Targeted sonographic correlation in the upper-outer aspect of the right breast is recommended for further evaluation. BI/DIAG MAMM W/CAD, BILAT IMPRESSION: BI-RADS 0: INCOMPLETE - NEED ADDITIONAL IMAGING EVALUATION. Follow-up code: Follow-up with ultrasound. The patient will be notified of the results by letter. Reading Location: [id number]
== END | disposition home or self-care (01) ==
LOC: OPBI 14:18
PROVIDERS: PCP Nurse Practitioner Family; Referring Provider Obstetrics & Gynecology; Visit Provider Obstetrics & Gynecology
DX: N63.11 Unspecified lump in the right breast, upper outer quadrant (principal)
CPT/HCPCS: 76642; 77062; 77066; G0279

== ENCOUNTER → 2025-02-09 | Outpatient (CLI) | payer BC, SELFPAY ==
--- NOTE | 2025-02-09 13:12 | RAD_ITS ---
PROCEDURE: THORACIC SPINE 3 VIEWS 02/09/2025 REASON FOR EXAM: PAIN TECHNIQUE: THORACIC SPINE 3 VIEWS COMPARISON: None. FINDINGS: No evidence of fracture or subluxation. Vertebral body heights are preserved. Alignment is anatomic. Well preserved disc spaces. No significant spondylotic changes are appreciated. No focal osseous lytic or blastic lesion identified. The lungs and pleura are clear. Unremarkable soft tissues. RAD/Thoracic Spine 3 Views IMPRESSION: Unremarkable thoracic spine radiographs. Reading Location: [id number]
--- NOTE | 2025-02-09 13:14 | RAD_ITS ---
PROCEDURE: RIBS UNIL 2V NO CXR 02/09/2025 REASON FOR EXAM: PAIN TECHNIQUE: RIBS UNIL 2V NO CXR COMPARISON: Thoracic spine radiographs 02/09/2025 FINDINGS: There are 12 paired ribs. No displaced rib fracture. Transitional lumbosacral anatomy with 6 [id number] lumbar-type vertebral bodies. Visualized lung gonzalez are clear. RAD/Ribs Unil 2V No CXR IMPRESSION: 1. No displaced rib fracture. 2. Transitional lumbosacral anatomy. Reading Location: [id number]
== END | disposition home or self-care (01) ==
LOC: MTRAD 13:11
PROVIDERS: PCP Nurse Practitioner Family; Referring Provider Nurse Practitioner Family; Visit Provider Nurse Practitioner Family
DX: M54.6 Pain in thoracic spine (principal); R07.82 Intercostal pain
CPT/HCPCS: 71100; 72072